=== PATIENT | female | born 1945 | race Caucasian/White ===

== ENCOUNTER → 2018-08-31 | Outpatient (CLI) | payer OTHER ==
[~2018-08-31] MED LIST: OMNIPAQUE 350 MG/ML, 100ML BOTTLE ONE
== END | disposition home or self-care (01) ==
LOC: CFH 08:03
PROVIDERS: ATTEND Internal Medicine
DX: N90.89 Other specified noninflammatory disorders of vulva and perineum (principal); E27.9 Disorder of adrenal gland, unspecified; N94.89 Other specified conditions associated with female genital organs and menstrual cycle; K44.9 Diaphragmatic hernia without obstruction or gangrene; M47.816 Spondylosis without myelopathy or radiculopathy, lumbar region
CPT/HCPCS: 74177; 82565; Q9967